=== PATIENT | female | born 1945 | race Caucasian/White ===

== ENCOUNTER 2017-09-18 08:54 | Outpatient (CLI) | payer MEDICARE ==
--- NOTE | 2017-09-18 10:43 | CT ---
NONCONTRAST CT PULMONARY LUNG SCAN: Date: 09-18-17 History: Low dose screening CT exam of thorax secondary to history of nicotine dependent. Patient has history of smoking for 46 years. Comparison: None. FINDINGS: No pulmonary nodule or mass is seen. There is no evidence of a pleural effusion. Minimal emphysematou s changes are seen at each lung apex. There is minimal dependent atelectasis seen bilaterally. Vascular calcifications are seen in the coronary arteries as well as involving the thoracic aorta. There is a tiny pericardial effusion present. Lack of intravenous contrast limits evaluation of the vascular structures as well as the mediastinum, but no enlarged lymph nodes are seen by CT size criteria. Limited visualized upper abdomen demonstrates grossly normal nonenhanced CT appearance. IMPRESSION: 1. Lung rads category I - no pulmonary nodules are identified. Continue annual screening with low dos e CT scan examination in 12 months. 2. Code S - tiny pericardial effusion and vascular calcifications in the coronary arteries as well as involving the thoracic aorta. POS: [facility]
== END 2017-09-18 08:55 | disposition home or self-care (01) ==
LOC: CT 08:54
PROVIDERS: ATTEND Nurse Practitioner
DX: Z87.891 Personal history of nicotine dependence (principal); I31.3 Pericardial effusion (noninflammatory); I25.10 Atherosclerotic heart disease of native coronary artery without angina pectoris; I70.0 Atherosclerosis of aorta
CPT/HCPCS: G0297

== ENCOUNTER 2018-10-16 13:42 | Outpatient (CLI) | payer MEDICARE | END 2018-10-16 13:43 | disposition home or self-care (01) | LOC: BICMAMMO 13:42 | PROVIDERS: ATTEND Nurse Practitioner | DX: Z12.31 Encounter for screening mammogram for malignant neoplasm of breast (principal); R92.1 Mammographic calcification found on diagnostic imaging of breast | CPT/HCPCS: 77063; 77067 ==